=== PATIENT | male | born 1980 | race Caucasian/White ===

== ENCOUNTER 2016-07-23 23:32 | Emergency (ER) | payer SELFPAY ==
[2016-07-23 23:49] VITALS: BP 137/90; PULSE 121; RESP 16; TEMP 97.7; O2SAT 95
[2016-07-24] MEDS ORDERED: AMPICILLIN-SULBACTAM INJ 3 GM in SODIUM CHLORIDE 0.9% INJ 100 ML IV ONE ×2
[2016-07-24] MEDS ORDERED: SODIUM CHLORIDE 0.9% FLUSH 5 ML FLUSH IVF PRN
[2016-07-24] MEDS ORDERED: LORazepam 2 MG/ML VIAL IV ONE
[2016-07-24] MEDS ORDERED: SODIUM CHLOR 0.9% 1000 ML INJ 1,000 ML IV ONE
[2016-07-24] MEDS ORDERED: TETANUS/DIPHTHERIA TOXOID ADULT 0.5 ML VIAL IM ONE
[2016-07-24] MEDS ORDERED: AUGM875T PO (00:22)
[2016-07-24] MEDS ORDERED: IBUP-232 PO (00:22)
--- NOTE | 2016-07-24 00:25 | PD ---
HPI Chief Complaint: Alcohol/Drug Intoxication Time Seen by Provider: 23:55 Travel History International Travel<30 days: No Contact w/Intl Traveler<30days: No Traveled to known affect area: No History of Present Illness HPI Patient is a 36-year-old male who presents to emergency room with EMS with complaints of alcohol intoxication. As per EMS, they were called by police as a friend's mother called police for help initially. Apparently patient was intoxicated and has been drinking heavily today and was noted to have bleeding from his left year. Patient's friend's mother called patient's mother in [place] and requested the patient be brought to the hospital. Patient reports that he doesn't know what happened to his ear and does not know why his ear is bleeding. Patient denies suicidal or homicidal idealizations. Patient reports that he just drank heavily today, denies any fall or trauma to the head. PFSH Past Medical History Medical History: Denies Significant Hx Past Surgical History Surgical History: No Previous Surgery Social History Alcohol Use: Yes Tobacco Use: Yes Substance Use: No Allergies-Medications (Allergen,Severity, Reaction): Coded Allergies: No Known Allergies (Unverified , 07/23/16) Reported Meds & Prescriptions Reported Meds & Active Scripts Active Ibuprofen 600 Mg Tab 600 Mg PO Q6H PRN Augmentin (Amoxicillin-Clavulanate) 875-125 mg Tab 875 Mg PO BID 10 Days not for use in CrCl <30 ml/min. Review of Systems ROS Limitations: Intoxication General / Constitutional: No: Fever Eyes: No: Visual changes HENT: Positive: Ear Discharge, Other (left ear bleeding), No: Headaches Cardiovascular: No: Chest Pain or Discomfort Respiratory: No: Shortness of Breath Gastrointestinal: No: Abdominal Pain Genitourinary: No: Dysuria Musculoskeletal: No: Pain Skin: No Rash Neurologic: No: Weakness Psychiatric: No: Depression Endocrine: No: Polydipsia Hematologic/Lymphatic: No: Easy Bruising Physical Exam Narrative GENERAL: Patient intoxicated SKIN: Warm and dry. HEAD: Atraumatic. Normocephalic. EYES: Pupils equal and round. No scleral icterus. No injection or drainage. ENT: No nasal bleeding or discharge. Mucous membranes pink and moist. Patient with left-sided TM rupture with hemotympanum, right TM normal NECK: Trachea midline. No JVD. CARDIOVASCULAR: Regular rate and rhythm. No murmur appreciated. RESPIRATORY: No accessory muscle use. Clear to auscultation. Breath sounds equal bilaterally. GASTROINTESTINAL: Abdomen soft, non-tender, nondistended. Hepatic and splenic margins not palpable. MUSCULOSKELETAL: No obvious deformities. No clubbing. No cyanosis. No edema. NEUROLOGICAL: Awake and alert. Motor grossly within normal limits. Normal speech. PSYCHIATRIC: Patient intoxicated Data Data Last Documented VS Vital Signs Date Time Temp Pulse Resp B/P Pulse Ox O2 Delivery O2 Flow Rate FiO2 07/23/16 23:49 97.7 121 16 137/90 95 Orders Complete Blood Count With Diff (07/23/16 23:55) Comprehensive Metabolic Panel (07/23/16 23:55) Iv Access Insert/Monitor (07/23/16 23:55) Ecg Monitoring (07/23/16 23:55) Sodium Chloride 0.9% Flush (Ns Flush) (07/24/16 00:00) Lorazepam Inj (Ativan Inj) (07/24/16 00:00) Drug Screen, Random Urine (07/23/16 23:55) Alcohol (Ethanol) (07/23/16 23:55) Salicylates (Aspirin) (07/23/16 23:55) Tylenol (Acetaminophen) (07/23/16 23:55) Ct Brain W/O Iv Contrast(Rout) (07/23/16 ) Sodium Chlor 0.9% 1000 Ml Inj (Ns 1000 M (07/24/16 00:00) Tetanus/Diphtheria Tox Adult (Tetanus/Di (07/24/16 00:00) Ampicillin-Sulbactam Inj (Unasyn Inj) (07/24/16 00:00) Labs Laboratory Tests Test 07/24/16 07/24/16 00:30 00:50 White Blood Count 7.4 TH/MM3 Red Blood Count 5.69 MIL/MM3 Hemoglobin 17.5 GM/DL Hematocrit 49.9 % Mean Corpuscular Volume 87.6 FL Mean Corpuscular Hemoglobin 30.8 PG Mean Corpuscular Hemoglobin 35.2 % Concent Red Cell Distribution Width 14.2 % Platelet Count 283 TH/MM3 Mean Platelet Volume 6.9 FL Neutrophils (%) (Auto) 62.5 % Lymphocytes (%) (Auto) 29.7 % Monocytes (%) (Auto) 6.9 % Eosinophils (%) (Auto) 0.4 % Basophils (%) (Auto) 0.5 % Neutrophils # (Auto) 4.6 TH/MM3 Lymphocytes # (Auto) 2.2 TH/MM3 Monocytes # (Auto) 0.5 TH/MM3 Eosinophils # (Auto) 0.0 TH/MM3 Basophils # (Auto) 0.0 TH/MM3 CBC Comment DIFF FINAL Differential Comment Sodium Level 145 MEQ/L Potassium Level 3.8 MEQ/L Chloride Level 106 MEQ/L Carbon Dioxide Level 25.6 MEQ/L Anion Gap 13 MEQ/L Blood Urea Nitrogen 12 MG/DL Creatinine 1.12 MG/DL Estimat Glomerular Filtration 75 ML/MIN Rate Random Glucose 102 MG/DL Calcium Level 8.6 MG/DL Total Bilirubin 0.4 MG/DL Aspartate Amino Transf 32 U/L (AST/SGOT) Alanine Aminotransferase 33 U/L (ALT/SGPT) Alkaline Phosphatase 80 U/L Total Protein 8.3 GM/DL Albumin 4.4 GM/DL Urine Opiates Screen NEG Acetaminophen Level LESS THAN 2.0 MCG/ML Urine Barbiturates Screen NEG Urine Amphetamines Screen NEG Urine Benzodiazepines Screen NEG Urine Cocaine Screen NEG Urine Cannabinoids Screen NEG Ethyl Alcohol Level 374 MG/DL Salicylates Level LESS THAN 1.7 MG/DL MDM Medical Decision Making Medical Screen Exam Complete: Yes Emergency Medical Condition: Yes Interpretation(s) Vital Signs Date Time Temp Pulse Resp B/P Pulse Ox O2 Delivery O2 Flow Rate FiO2 07/23/16 23:49 97.7 121 16 137/90 95 CBC & BMP Diagram 07/24/16 00:[address] 07/23/16 0000 Signed Impressions: Service Date/Time: Sunday, July 24, 2016 00:36 - CONCLUSION: No acute intracranial findings. Carlos Howard MD Differential Diagnosis Alcohol intoxication, intracranial hemorrhage, drug abuse, TM rupture, electrolyte abnormality Narrative Course Patient is a 36-year-old male who presents to emergency room with EMS for evaluation of blood coming out of his left ear as well as for alcohol intoxication. Patient is here for a for medication, reports that he has been drinking heavily and may have had too much to drink today. Patient here for evaluation of alcohol intoxication and left ear bleeding. Patient currently intoxicated, patient cannot provide history of present illness. Patient does have bleeding from his left ear and TM rupture. Patient' s tetanus is updated, she was given a dose of Unasyn. Plan to continue Augmentin as outpatient. Patient will need to follow-up with ENT as outpatient. Labs as well as tox screens ordered. Will monitor patient. Diagnosis Primary Impression: Alcohol intoxication Qualified Code: F10.120 - Alcohol intoxication, uncomplicated Additional Impressions: Hematotympanum of left ear Tympanic membrane rupture Qualified Code: H72.92 - Tympanic membrane rupture, left Referrals: Luis Enrique Jefferson MD Patient Instructions: General Instructions Additional Instructions: Please follow-up with the ear nose and throat doctor as soon as possible Please take all antibiotics as prescribed Please not place any Q-tips or foreign bodies into your ears Your tetanus was updated today Please stop drinking alcohol or drink responsibly Return to the emergency room if symptoms progress or worsen Return to the emergency room as needed Scripts Ibuprofen 600 Mg [id number] Mg PO Q6H PRN (Pain/Inflammation) #40 TAB Ref 0 Prov:Tara Benton DO 07/24/16 Amoxicillin-Clavulanate (Augmentin)875-125 mg [id number] Mg PO BID 10 Days Ref 0 not for use in CrCl <30 ml/min. Prov:Tara Benton DO 07/24/16 Tara Benton DO Jul 24, 2016 00:25 Tara Benton DO Jul 24, 2016 00:25
[2016-07-24 00:56] LABS: AUTOMATED NEUTROPHIL # 4.6 TH/MM3 (1.8-7.7); BASOPHIL % 0.5 % (0.0-2.0); EOSINOPHIL % 0.4 % (0.0-4.0); HEMATOCRIT 49.9 % (39.0-51.0); HEMO FLAGS DIFF FINAL; LYMPH % 29.7 % (9.0-44.0); LYMPHOCYTE # 2.2 TH/MM3 (1.0-4.8); MEAN CELL VOLUME 87.6 FL (80.0-100.0); MEAN CORPUSCULAR HEMOGLOBIN 30.8 PG (27.0-34.0); MEAN CORPUSCULAR HGB CONC 35.2 % (32.0-36.0); MONO % 6.9 % (0.0-8.0); NEUT % 62.5 % (16.0-70.0); PLATELET COUNT 283 TH/MM3 (150-450); RED BLOOD COUNT 5.69 MIL/MM3 (4.50-5.90); RED CELL DISTRIBUTION WIDTH 14.2 % (11.6-17.2); WHITE BLOOD COUNT 7.4 TH/MM3 (4.0-11.0)
[2016-07-24 01:05] LABS: AMPHETAMINE, URINE NEG (NEG); BARBITURATES, URINE NEG (NEG); COCAINE, URINE NEG (NEG)
[2016-07-24 01:17] LABS: ALT (GPT) 33 U/L (12-78); ANION GAP 13 MEQ/L (5-15); AST (GOT) 32 U/L (15-37); BICARBONATE 25.6 MEQ/L (21.0-32.0); BLOOD UREA NITROGEN 12 MG/DL (7-18); CHLORIDE 106 MEQ/L (98-107); GLOMERULAR FILTRATION RATE 75 ML/MIN (>89); POTASSIUM 3.8 MEQ/L (3.5-5.1); SODIUM (NA) 145 MEQ/L (136-145)
[2016-07-24 01:19] LABS: ALKALINE PHOSPHATASE 80 U/L (45-117); TOTAL BILIRUBIN ADULT 0.4 MG/DL (0.2-1.0)
[2016-07-24 01:31] LABS: ACETAMINOPHEN LESS THAN 2.0 MCG/ML (10.0-30.0)
--- NOTE | 2016-07-24 01:31 | RADRPT ---
EXAM DATE/TIME: 07/24/2016 00:36 CORRECTION Corrected on: July 24, 2016; [facility] COMPARISON: No previous studies available for comparison. INDICATIONS : Fall. RADIATION DOSE: 35.57 CTDIvol (mGy) MEDICAL HISTORY : None SURGICAL HISTORY : None ENCOUNTER: Initial ACUITY: 1 day PAIN SCALE: 6/10 LOCATION: cranial TECHNIQUE: Multiple contiguous axial images were obtained of the head. Using automated exposure control and adj ustment of the mA and/or kV according to patient size, radiation dose was kept as low as reasonably a chievable to obtain optimal diagnostic quality images. FINDINGS: CEREBRUM: The ventricles are normal for age. No evidence of midline shift, mass lesion, hemorrhage or acute in farction. No extra-axial fluid collections are seen. POSTERIOR FOSSA: The cerebellum and brainstem are intact. The 4th ventricle is midline. The cerebellopontine angle i s unremarkable. EXTRACRANIAL: The visualized portion of the orbits is intact. SKULL: The calvaria is intact. No evidence of skull fracture. CONCLUSION: No acute intracranial findings. Carlos Howard MD on July 24, 2016 at 1:28 Board Certified Radiologist. This report was verified electronically. Carlos Howard MD on July 24, 2016 at 2:05 Board Certified Radiologist. This report was verified electronically.
[2016-07-24 10:46] VITALS: BP 125/80; PULSE 88; RESP 18; TEMP 98.2; O2SAT 99
== END 2016-07-24 10:55 | disposition home or self-care (01) ==
LOC: NEPE 23:32
DX: F10.120 Alcohol abuse with intoxication, uncomplicated (principal); H72.92 Unspecified perforation of tympanic membrane, left ear; Z23 Encounter for immunization; Z72.0 Tobacco use; Y90.8 Blood alcohol level of 240 mg/100 ml or more
CPT/HCPCS: 70450; 80053; 80307; 85025; 90471; 90714; 96361; 96365; 99284; J0295; J2060; J7030

== ENCOUNTER 2016-07-25 00:45 | Emergency (ER) | payer OTHER ==
[~2016-07-25] VITALS: Ht 172.7 cm; Wt 81.8 kg
[~2016-07-25 00:45] MED LIST: AUGM875T PO; IBUP-232 PO
[2016-07-25 00:55] VITALS: BP 140/97; PULSE 101; RESP 16; TEMP 98.5; O2SAT 95
--- NOTE | 2016-07-25 01:21 | PD ---
HPI Chief Complaint: Psychiatric Symptoms Time Seen by Provider: 01:20 Travel History International Travel<30 days: No Contact w/Intl Traveler<30days: No Traveled to known affect area: No History of Present Illness HPI Patient comes in under a Pichardo act by police for alcohol intoxicated and making suicidal statements. He states he has had thoughts of harming himself. He states he tried harming himself the past by cutting his wrist. Patient does not wish to share his current plans. Patient states he drank a lot of alcohol today. Patient denies any medical concerns. Denies any chest pain, shortness of breath, fevers, headache, abdominal pain, or other concerns. PFSH Past Medical History Medical History: Denies Significant Hx LMP: . Past Surgical History Surgical History: No Previous Surgery Social History Alcohol Use: Yes (DAILY) Tobacco Use: No Substance Use: No (PT DENIES) Allergies-Medications (Allergen,Severity, Reaction): Coded Allergies: No Known Allergies (Unverified , 07/25/16) Reported Meds & Prescriptions Reported Meds & Active Scripts Active No Active Prescriptions or Reported Medications Review of Systems ROS Limitations: Intoxication Except as stated in HPI: all other systems reviewed are Neg Physical Exam Exam Limitations: Intoxication Narrative GENERAL: Well-developed, overly nourished, in no acute distress, and non-ill appearing. SKIN: Warm and dry. HEAD: Atraumatic. Normocephalic. EYES: Pupils equal and round. EOMI. No scleral icterus. No injection or drainage. ENT: No nasal bleeding or discharge. Mucous membranes pink and moist. NECK: Trachea midline. No JVD. Supple. No nuclear rigidity. CARDIOVASCULAR: Regular rate and rhythm. No murmur appreciated. RESPIRATORY: No accessory muscle use. No respiratory distress. Clear to auscultation. Breath sounds equal bilaterally. MUSCULOSKELETAL: No obvious deformities. No clubbing. No cyanosis. No edema. Full range of motion. NEUROLOGICAL: Awake and alert. No obvious cranial nerve deficits. Motor grossly within normal limits. Slurred speech. Data Data Last Documented VS Vital Signs Date Time Temp Pulse Resp B/P Pulse Ox O2 Delivery O2 Flow Rate FiO2 07/25/16 00:55 98.5 101 16 140/97 95 Orders Psych Screen (07/25/16 01:07) Alcohol (Ethanol) (07/25/16 01:07) ^ Sitter (07/25/16 01:59) Labs Laboratory Tests Test 07/25/16 01:00 Ethyl Alcohol Level 358 MG/DL MDM Medical Decision Making Medical Screen Exam Complete: Yes Emergency Medical Condition: Yes Differential Diagnosis Alcohol intoxication, suicidal, homicidal, alcohol use mood disorder, other Narrative Course Patient was seen and examined. Labs were obtained and reviewed as well as labs from approximately 24 hours ago. Patient medically cleared for further treatment and evaluation by psych. Final disposition per psych. Diagnosis Primary Impression: Alcohol intoxication Qualified Code: F10.120 - Alcohol intoxication, uncomplicated Scripts No Active Prescriptions or Reported Meds Condition: Stable Drew Ferrari Jul 25, 2016 01:21
[2016-07-25 06:04] VITALS: BP 131/81; PULSE 92; RESP 19; O2SAT 97
--- NOTE | 2016-07-25 08:23 | MB ---
cc: CHESTER MOLINA MD DATE OF CONSULTATION 07/25/2016 PHYSICIAN REQUESTING CONSULTATION Emergency Department REASON FOR CONSULTATION Pichardo Act HISTORY OF PRESENT ILLNESS Mr. Vicente is a 36-year-old male with a reported history of alcoholism who presents under a Pichardo Act from [employer] alleging that the patient made several suicidal statements to his mother and fellow law enforcement officers via the telephone. Of note, the patient's alcohol level was markedly elevated at 358 on presentation here. Reviewing the electronic medical record, I note the patient was seen in the emergency room within the last 24 hours for acute alcohol intoxication and has apparently re-intoxicated himself in the meantime. The patient seen and examined. Chart reviewed. Case discussed with nurse in the J-pod. There has been no evidence of any suicidal or homicidal behavior in the J-pod. On my examination this morning, the patient is clinically sober. He denies any suicidal ideation, intent or plan on direct questioning. 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 He denies feeling particularly depressed when sober, and I can elicit no depressive or hypomanic/manic symptoms at this time. He denies any homicidal ideation. He denies ever having experienced audiovisual hallucinations and I can elicit no delusional beliefs including but not limited to paranoia, ideas of reference, thought insertion or withdrawal or grandiosity. The remainder of the psychiatric ROS is negative. The patient is requesting discharge from the psychiatric emergency room this morning. Nursing staff has obtained collateral from the patient's mother to the effect that the patient has an extensive alcohol history. He may have received a depressive disorder diagnosis while he was in rehab, but otherwise has not been following up for any sort of non-substance use psychiatric diagnosis. PAST PSYCHIATRIC HISTORY The patient reports only a history of alcoholism. He is not currently under the care of a psychiatrist nor does he take any psychotropic medications. He has been admitted for detoxification and rehabilitation services before, but has never been psychiatrically admitted. He denies any history of suicide attempts. FAMILY HISTORY The patient reports that every male in his family is an alcoholic. He reports that his uncle by suicide. No other reported family psychiatric history. CHEMICAL DEPENDENCY HISTORY The patient reports that he has been drinking 18 beers a day. He drinks no liquor or wine. He endorses a history of blackouts, but denies a history of DTs or seizures. He endorses a history of the DUI, job loss, relationship problems and losing his guitar as a consequence of his substance use. His longest sober time is two years having participated in [facility] drug rehabilitation program called [facility]. He does view his substance use as problematic, but declines any referral for chemical dependency services at this time saying that he has to get back up to [place] within the next few days. SOCIAL HISTORY The patient is visiting from [place]. He is single with no children. 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 He is currently working laying solar panels. He denies any or legal history. Denies any access to guns or firearms. PAST MEDICAL HISTORY No reported medical history. REVIEW OF SYSTEMS No reported headache, vision or hearing changes, chest pain, shortness of breath, bowel or bladder issues. No other physical complaints. PHYSICAL EXAMINATION VITALS: Temperature is 98.5, pulse 92, respirations 19, blood pressure 131/81, pulse oximetry 97% on room air. A physical examination was completed in the emergency room by the ER staff and the patient was medically cleared. On my examination today, the patient appears to be well-nourished and well-developed and in no acute physical distress. No hand tremor, no diaphoresis, no mydriasis, no other signs of GABAergic withdrawal. No other motoric abnormalities noted. LABORATORY DATA Laboratories reviewed, only an alcohol level was drawn today because the patient was in the ER within the last 24 hours. Alcohol level on presentation here was 358. His CBC and CMP from previous admission were unremarkable except for a mildly decreased GFR of 75. There is no transaminitis or thrombocytopenia. MENTAL STATUS EXAM The patient is in hospital gown. He is well-groomed. He is awake, alert and oriented x3. No evidence of delirium. No abnormal motor movements noted. Speech is within normal limits for rate, tone and volume. Language and fund of knowledge seem average. Mood is fair and affect is full and reactive and generally euthymic. Thought process linear. No loosening of associations. No evident delusions. Denies audiovisual hallucinations. Denies suicidal or homicidal ideation. Insight and judgment are fair generally but likely poor with respect to his substance use issues. ASSESSMENT/PLAN 1. Alcohol dependence with alcohol intoxication, intoxication now resolved F10.220 This is a 36-year-old male with psychiatric history as detailed above who presents under a Pichardo Act. The patient is substance use disordered. He recognizes that he is an alcoholic, but declines a referral for chemical dependency services at this time for the reasons noted above. I can detect no unstable mood, anxiety or psychotic disorder in this patient at this time. He is denying suicidal or homicidal ideation. He appears to be attending to his basic needs. Synthesizing the above, I medical parasitologist that the patient does not meet Pichardo Act criteria at this time as he does not suffer from a mental illness as described under the Pichardo Act, nor is there any evident risk of imminent risk to harm to self or others from a mental illness as defined under Pichardo Act after weighing the acute, chronic, and protective factors. I have lifted the Pichardo Act. I do, of course, believe that the patient has severe alcohol use issues and have strongly recommended that he seek help for this today, but he has declined as I said. He promises to get help once he returns to [place]. We will provide him with a referral for chemical dependency resources in our area, in case he should decide to remain here. The patient is otherwise psychiatrically clear for discharge from the emergency room. Thank you very much for this consultation. Chester GUZMAN /7:45 AM /7:56 AM BRENDA
== END 2016-07-25 08:15 | disposition home or self-care (01) ==
LOC: NEPA 00:45 → NEPJ 08:15
DX: F10.129 Alcohol abuse with intoxication, unspecified (principal); F10.229 Alcohol dependence with intoxication, unspecified; Y90.8 Blood alcohol level of 240 mg/100 ml or more
CPT/HCPCS: 80307; 99284